=== PATIENT | female | born 1965 | race Caucasian/White ===

== ENCOUNTER 2019-07-18 13:21 | Emergency (ER) | payer OTHER ==
[~2019-07-18] VITALS: Ht 170.1 cm; Wt 72.6 kg
[~2019-07-18 13:21] MED LIST: NEXIUM20 M1 PO; NKHM PO; PYRIDIUM200 MG PO; RANITIDINE HCL150 M1 PO; ROXICET ORAL SOL5 ML PO; VICODIN 5-3001 EACH PO
[2019-07-18 14:32] LABS: BILIRUBIN 2+ (NEGATIVE); BLOOD 3+ (NEGATIVE); CLARITY CLOUDY (CLEAR); GLUCOSE 1+ (NEGATIVE); KETONE NEGATIVE (NEGATIVE); LEUKO ESTERASE 1+ (NEGATIVE); NITRITE POSITIVE (NEGATIVE)
[2019-07-18 14:38] LABS: COLOR ORANGE (YELLOW)
[2019-07-18 14:40] LABS: BACTERIA 1+; RBC TNTC rbc/hpf (0-2)
[2019-07-18] MEDS ORDERED: PYRIDIUM200 M1 PO (14:46)
[2019-07-18] MEDS ORDERED: CEFUROXIME AXE500 MG PO (14:46)
== END 2019-07-18 14:55 | disposition home or self-care (01) ==
LOC: ED 13:21
PROVIDERS: Nurse Practitioner Family
DX: N39.0 Urinary tract infection, site not specified (principal); Z79.899 Other long term (current) drug therapy

== ENCOUNTER → 2021-12-02 | Outpatient (CLI) | payer OTHER ==
[~2021-12-02] MED LIST changes: +CEFUROXIME AXE500 MG PO; +PYRIDIUM200 M1 PO
== END | disposition home or self-care (01) ==
LOC: RAD 13:14
PROVIDERS: ATTEND Internal Medicine
DX: J44.9 Chronic obstructive pulmonary disease, unspecified (principal)

== ENCOUNTER → 2021-12-09 | Outpatient (CLI) | payer OTHER | END | disposition home or self-care (01) | LOC: CARD 02:06 | PROVIDERS: ATTEND Internal Medicine | DX: R07.2 Precordial pain (principal) ==

== ENCOUNTER → 2021-12-22 | Outpatient (CLI) | payer OTHER | END | disposition home or self-care (01) | LOC: MAMMO 10:59 | PROVIDERS: ATTEND Internal Medicine | DX: Z12.31 Encounter for screening mammogram for malignant neoplasm of breast (principal) ==